=== PATIENT | female | born 1980 | race Caucasian/White ===

== ENCOUNTER 2020-03-13 20:20 | Emergency (ER) | payer SELFPAY ==
[~2020-03-13] VITALS: Ht 160 cm; Wt 87.3 kg
[~2020-03-13 20:20] MED LIST: CITA40TA5 PO; LEVO112T2 PO; LEVO75TA5 PO; OXYC-302 PO
--- NOTE | 2020-03-13 20:59 | NUR ---
Report from Kyaw HARDIN
[2020-03-13] MEDS ORDERED: MORPHINE SULFATE 4 MG/ML, 1ML IVPush PRN (21:30)
[2020-03-13] MEDS ORDERED: KETOROLAC 30 MG/1 ML IVPush ONE (21:30)
[2020-03-13] MEDS ORDERED: SODIUM CHLORIDE FLUSH 10ML SYR IVF ONE (21:30)
[2020-03-13 21:31] LABS: BASOPHILS # (AUTO) 0.05 x10^3/uL (0-0.1); BASOPHILS % (AUTO) 1 % (0-1); EOSINOPHILS # (AUTO) 0.29 x10^3/uL (0-0.4); EOSINOPHILS % (AUTO) 4 % (1-7); LYMPHOCYTES % (AUTO) 15 % (22-44); MD NO; MEAN CORPUSCULAR HEMOGLOBIN 31.1 pg (27.0-34.8); MEAN CORPUSCULAR HGB CONC 34.1 g/dL (32.4-35.8); MEAN CORPUSCULAR VOLUME 91.1 fL (80-100); MEAN PLATELET VOLUME 9.5 fL (7.4-10.4); MONOCYTES # (AUTO) 0.56 x10^3/uL (0.2-0.8); MONOCYTES % (AUTO) 7 % (2-9); NEUTROPHILS # (AUTO) 5.87 x10^3/uL (1.8-6.8); NEUTROPHILS % (AUTO) 74 % (42-75); PLATELET COUNT 252 x10^3/uL (130-400); RED BLOOD COUNT 4.37 x10^6/uL (3.82-5.3); RED CELL DISTRIBUTION WIDTH 12.8 % (9.6-15.2)
--- NOTE | 2020-03-13 21:42 | NUR ---
PT TRANSPORTED TO CT.
[2020-03-13 21:43] LABS: ALANINE AMINOTRANSFERASE 21 U/L (12-78); ALBUMIN 3.2 g/dL (3.4-5.0); ANION GAP 6 mmol/L (5-15); CALCIUM 8.3 mg/dL (8.5-10.1); CHLORIDE 110 mmol/L (98-107); CREATININE 0.91 mg/dL (0.55-1.02)
[2020-03-13 21:45] LABS: ALKALINE PHOSPHATASE 153 U/L (45-117); BILIRUBIN,TOTAL 0.2 mg/dL (0.2-1.0)
[2020-03-13] MEDS ORDERED: MORPHINE SULFATE 4 MG/ML, 1ML ONE (21:50)
[2020-03-13] MEDS ORDERED: ONDANSETRON 2MG/ML, 2ML ONE (21:50)
[2020-03-13] MEDS ORDERED: KETOROLAC 30 MG/1 ML ONE (22:00)
[2020-03-13 22:09] VITALS: BP 108/77
[2020-03-13 22:40] LABS: MICROSCOPIC NOT IND
--- NOTE | 2020-03-13 23:29 | NUR ---
Patient/Caregiver given discharge instructions and they have confirmed that they understand the instructions. Patient ambulatory with steady gait.
== END 2020-03-13 23:31 | disposition home or self-care (01) ==
LOC: ED 20:35
DX: S39.012A Strain of muscle, fascia and tendon of lower back, initial encounter (principal); R10.9 Unspecified abdominal pain; X58.XXXA Exposure to other specified factors, initial encounter; Y93.89 Activity, other specified; Y92.89 Other specified places as the place of occurrence of the external cause; Y99.8 Other external cause status
CPT/HCPCS: 36415; 72131; 74176; 80053; 81003; 83690; 85025; 96374; 96375; 99285; J1885; J2270

== ENCOUNTER 2020-11-28 21:36 | Emergency (ER) | payer SELFPAY ==
[~2020-11-28] VITALS: Ht 160 cm; Wt 84.0 kg
[~2020-11-28 21:36] MED LIST changes: -OXYC-302 PO; +OXYC1TAB14 PO
[2020-11-28 22:07] LABS: MICROSCOPIC NOT IND
[2020-11-28] MEDS ORDERED: MORPHINE SULFATE 4 MG/ML, 1ML ONE ×2 (22:51→23:36)
[2020-11-28] MEDS ORDERED: ONDANSETRON 2MG/ML, 2ML ONE (22:51)
[2020-11-28] MEDS: MORPHINE SULFATE 4 MG/ML, 1ML IVPush PRN ×2 (22:59→23:43)
--- NOTE | 2020-11-28 22:59 | NUR ---
PT HERE FOR RIGHT UPPER QUAD PAIN THAT STARTED THIS MORNING. PAIN IS SHARP AND CONSTANT. PT HAD GALLBLADDER REMOVED 06/2020. PT DENIES URINARY SYMPTOMS BUT HAS NAUSEA piv placed from which labs were drawn-patient then medicated per emar
[2020-11-28] MEDS ORDERED: ONDANSETRON 2MG/ML, 2ML IVPush ONE (23:00)
[2020-11-28] MEDS ORDERED: SODIUM CHLORIDE 0.9% 1,000ML IVBOLUS ONE (23:00)
[2020-11-28 23:18] LABS: BASOPHILS % (AUTO) 1 % (0-1); EOSINOPHILS % (AUTO) 8 % (1-7); LYMPHOCYTES % (AUTO) 21 % (22-44); MEAN CORPUSCULAR HEMOGLOBIN 30.9 pg (27.0-34.8); MEAN CORPUSCULAR HGB CONC 34.4 g/dL (32.4-35.8); MEAN PLATELET VOLUME 10.6 fL (7.4-10.4); MONOCYTES % (AUTO) 7 % (2-9); NEUTROPHILS % (AUTO) 63 % (42-75); PLATELET COUNT 208 x10^3/uL (130-400); RED BLOOD COUNT 4.82 x10^6/uL (3.82-5.3); RED CELL DISTRIBUTION WIDTH 13.5 % (9.6-15.2)
[2020-11-28 23:27] LABS: ALANINE AMINOTRANSFERASE 22 U/L (12-78); ALBUMIN 3.5 g/dL (3.4-5.0); ANION GAP 7 mmol/L (5-15); CALCIUM 8.4 mg/dL (8.5-10.1); CHLORIDE 106 mmol/L (98-107); CREATININE 0.71 mg/dL (0.55-1.02)
[2020-11-28 23:29] LABS: ALKALINE PHOSPHATASE 172 U/L (45-117); BILIRUBIN,TOTAL 0.2 mg/dL (0.2-1.0); TOTAL PROTEIN 7.1 g/dL (6.4-8.2)
--- NOTE | 2020-11-28 23:38 | NUR ---
ASSUMED CARE OF PATIENT. REPORT GIVEN FROM OSITO CAMPOS
--- NOTE | 2020-11-28 23:44 | NUR ---
With reassessment ruq pain rebounded to 9/10 described as sharp-remedicated per emar As all testing resulted poc discused with erp=plan to d/c 1l ns complete report to Ashley MCNEILL
--- NOTE | 2020-11-29 00:13 | NUR ---
PT HAS A RIDE HOME FROM HER DAUGHTER. VS STABLE. NO ACUTE DISTRESS NOTED. PT READY FOR DC.
[2020-11-29 00:14] VITALS: BP 140/92
== END 2020-11-29 00:16 | disposition home or self-care (01) ==
LOC: ED 22:00
DX: R10.11 Right upper quadrant pain (principal); R11.0 Nausea; Z90.49 Acquired absence of other specified parts of digestive tract
CPT/HCPCS: 36415; 80053; 81003; 83690; 85025; 96361; 96374; 96375; 96376; 99284; J2270; J2405; J7030